=== PATIENT | male | born 1955 | race Caucasian/White ===

== ENCOUNTER → 2016-08-16 | Outpatient (CLI) | payer BC ==
--- NOTE | ~2016-08-16 | TH ---
Unit #: [id number] #: [id number] Patient: DEBRA BEATTY [id number] [address] [address] [id number] O MR#: [id number] NAME: DEBRA BEATTY : 1955 SEX: M STUDY DATE/TIME: 08/16/2016 UNIT: [facility] ROOM: STUDY DESCRIPTION: Imaging study Attending Physician: López Rodrigues M.D. Referring Physician: López Rodrigues M.D. Primary Care Physician: Renetta Arriaga A.P.R.N. CARDIOLOGY REPORT EXAM Cardiolite study DESCRIPTION OF PROCEDURE This 60-year-old patient was exercised on a treadmill, achieving a heart rate of 137 per minute. At the peak of the exercise the patient was injected with 34.8 mCi of technetium-99m Cardiolite and images were obtained according to a standard SPECT protocol. For rest images 11.45 mCi of Cardiolite were injected. Images were reviewed in both phases. FINDINGS Overall study quality is excellent. LV cavity size is normal in both images. There is no lung activity. RV is normal. Rotating raw data showed no significant artifact, soft tissue attenuation or GI uptake. Review of the SPECT images showed a normal homogeneous radiotracer concentration throughout the myocardium in both the stress and rest images and a small fixed defect, probably tissue artifact. Gated study showed normal LV wall motion with estimated LV ejection fraction of 57%. IMPRESSION 1. Myocardial perfusion imaging is normal. 2. No evidence of ischemia or infarct. 3. Normal left ventricular dimensions. 4. Normal systolic left ventricular systolic function with an estimated left ventricular ejection fraction of 57%. Dictated by... Garfield Wells/candy TD: 08/16/2016 22:29 JOB #: [id number] Unit #: [id number] #: [id number] Patient: DEBRA BEATTY CARDIOLOGY REPORT X Cece Rivas MD CARDIOLOGY REPORT
--- NOTE | ~2016-08-16 | ST ---
Unit #: [id number] #: [id number] Patient: DEBRA BEATTY [id number] [address] [address] [id number] O MR#: [id number] NAME: DEBRA BEATTY : 1955 SEX: M STUDY DATE/TIME: 08/16/2016 UNIT: [facility] ROOM: STUDY DESCRIPTION: Stress test Attending Physician: López Rodrigues M.D. Referring Physician: López Rodrigues M.D. Primary Care Physician: Renetta Arriaga A.P.R.N. CARDIOLOGY REPORT EXAM Nuclear study DESCRIPTION OF PROCEDURE AND FINDINGS Baseline EKG normal sinus rhythm, normal EKG. Resting heart rate 90 per minute, blood pressure 140/97. This 60-year-old patient was exercised on a Amol protocol for 7 minutes, achieving a heart rate of 137 per minute. Peak blood pressure was 184/400. Exercise was terminated because of fatigue. No ischemic changes noted. No arrhythmias noted. Blood pressure response was normal. INTERPRETATION 1. Negative exercise test for ischemia. 2. No arrhythmias noted. 3. Normal blood pressure response to exercise. 4. Correlate with the Cardiolite study. Dictated by... Garfield Wells/candy TD: 08/16/2016 22:22 JOB #: [id number] CARDIOLOGY REPORT X Cece Rivas MD CARDIOLOGY REPORT
== END | disposition home or self-care (01) ==
LOC: CNUC 06:45
DX: R07.9 Chest pain, unspecified (principal)
CPT/HCPCS: 78452; 93017; A9500